=== PATIENT | male | born 1975 | race Caucasian/White ===

== ENCOUNTER → 2018-04-23 | Outpatient (CLI) | payer OTHER ==
[~2018-04-23] MED LIST: ALLP300T PO; CALC-80 PO; CEPH500C PO; HYDR1TAB PO; MAGN100T3 PO; NAPR220T76 PO; OMEG1CAP51 PO; SULF1TAB38 PO
--- NOTE | 2018-04-23 09:47 | Diagnostic Imaging Report ---
INDICATION: Elevated liver function tests TECHNIQUE: Multiple grayscale sonographic images were obtained of the right upper quadrant of the abdomen. CORRELATION STUDY: None FINDINGS: LIVER: There is increased echotexture within the visualized portions of the liver. There is normal, hepatopedal direction of flow within the main portal vein. Liver enlarged at 21 cm. GALLBLADDER: The gallbladder demonstrates no definitive shadowing gallstones. No abnormal gallbladder wall thickening or pericholecystic fluid. COMMON BILE DUCT: Upper limits of normal at 5 mm. PANCREAS: Largely obscured. RIGHT KIDNEY: Measures 11.7 cm. No hydronephrosis. AORTA/IVC: Not well visualized. OTHER: None. IMPRESSION: 1. Hepatomegaly with changes of hepatic steatosis. Dictated by: Dictated on workstation # [id number]
== END ==
LOC: RAD 07:50
PROVIDERS: ATTEND Nurse Practitioner Family
DX: K76.0 Fatty (change of) liver, not elsewhere classified (principal); D69.6 Thrombocytopenia, unspecified
CPT/HCPCS: 76705

== ENCOUNTER → 2019-08-11 | Outpatient (CLI) | payer OTHER ==
--- NOTE | 2019-08-11 07:58 | Diagnostic Imaging Report ---
INDICATION: Right upper quadrant abdominal pain. TECHNIQUE: Multiple grayscale sonographic images were obtained of the right upper quadrant of the abdomen. CORRELATION STUDY: None FINDINGS: LIVER: There is increased echotexture within the visualized portions of the liver. There is normal, hepatopedal direction of flow within the main portal vein. Enlarged at 21 cm. GALLBLADDER: The gallbladder demonstrates no definitive shadowing gallstones. No abnormal gallbladder wall thickening or pericholecystic fluid. COMMON BILE DUCT: Upper limits of normal at 5 mm. PANCREAS: Visualized portions appearing unremarkable. RIGHT KIDNEY: Measures 11.7 x 6.4 x 5.5 cm. No hydronephrosis. AORTA/IVC: Not well visualized. OTHER: None. IMPRESSION: 1. Hepatomegaly with changes reflecting hepatic steatosis. 2. Negative for gallstones. Common bile duct upper limits of normal. Dictated by: Dictated on workstation # [id number]
== END ==
LOC: RAD 06:33
PROVIDERS: ATTEND Family Medicine
DX: K76.0 Fatty (change of) liver, not elsewhere classified (principal); R16.0 Hepatomegaly, not elsewhere classified
CPT/HCPCS: 76705

== ENCOUNTER → 2019-08-23 | Outpatient (CLI) | payer OTHER ==
[~2019-08-23] MED LIST changes: +CATHETER FLUSH 10 ML SYR IV PRN
--- NOTE | 2019-08-23 12:18 | Diagnostic Imaging Report ---
COMPARISON: Liver/gallbladder ultrasound on 08/11/2019. REASON FOR EXAM: Right upper quadrant abdominal pain. PROCEDURE: The patient was administered 5.33 mCi of Choletec. 8 ounces of Ensure was ingested one hour into the exam. Images were obtained one hour following ingestion of Ensure. A nuclear medicine hepatobiliary scan with ejection fraction was performed. FINDINGS: There is prompt uptake and excretion of radiotracer by the liver. Activity is visible in the gallbladder by 40 minutes and the small bowel by 15 minutes. Ejection fraction of the gallbladder is calculated at 16% (normal >35%). Retained radiotracer is visualized at 120 minutes. IMPRESSION: 1. Findings most consistent with gallbladder dyskinesia. 2. No evidence of acute cholecystitis. Dictated by: Dictated on workstation # [id number]
== END ==
LOC: CARD 09:26
PROVIDERS: ATTEND Family Medicine
DX: R10.11 Right upper quadrant pain (principal)
CPT/HCPCS: 78227

== ENCOUNTER 2019-10-01 13:40 | Outpatient (CLI) | payer OTHER ==
[~2019-10-01] VITALS: Ht 182.9 cm; Wt 129.5 kg
[~2019-10-01 13:40] MED LIST changes: -CATHETER FLUSH 10 ML SYR IV PRN
[2019-10-01] MEDS ORDERED: CALC-901 PO (13:50)
[2019-10-01] MEDS ORDERED: MAGN100T5 PO (13:50)
[2019-10-01] MEDS ORDERED: ALLO300T2 PO (13:50)
== END 2019-10-01 13:52 | disposition home or self-care (01) ==
LOC: PREOP 13:40
PROVIDERS: ATTEND Surgery
DX: Z01.818 Encounter for other preprocedural examination (principal)

== ENCOUNTER 2021-03-10 22:00 | Emergency (ER) | payer OTHER ==
[~2021-03-10] VITALS: Ht 182.9 cm; Wt 131.5 kg
[~2021-03-10 22:00] MED LIST changes: +ACHD5005 PO; +ALLO300T2 PO; +CALC-901 PO; +DOCU-143 PO; +MAGN100T5 PO
[2021-03-10 22:20] VITALS: BP 149/89
[2021-03-10] MEDS ORDERED: RX-NAPROXEN (NAPROSYN) 250 MG TAB PPK#4 PO STA (22:38)
[2021-03-10] MEDS ORDERED: TRAM-42 PO (22:41)
[2021-03-10] MEDS ORDERED: NAPR500T8 PO (22:41)
--- NOTE | 2021-03-10 22:41 | ED Upper Extremity ---
General Chief Complaint: Upper Extremity Stated Complaint: R BICEP POPPING/PAIN Nursing Triage Note: PRESENTS TO TRIAGE ACCOMPANIED BY FROM POV WITH C/O ONJURY TO R BICEP. STATES AT 2029 ON THIS DAY WHILE LIFTING A TRUCK BED, HE INJURED BICEP MUSCLE. OBVIOUS BULGING DEFORMITY NOTED TO R BICEP MUSCLE. Nursing Sepsis Screen: No Definite Risk Source: patient History of Present Illness Date Seen by Provider: Mar 10, 2021 Time Seen by Provider: 22:30 Initial Comments PT ARRIVES VIA POV FROM HOME STATES TONIGHT BETWEEN 2029 AND 2099, HE WAS PICKING UP A TRUCK BED, AND FELT A "POP" IN HIS RIGHT BICEPS AREA AND IT IMMEDIATELY BULGED OUT. STATES IT DOESN'T HURT VERY BAD, AND HAS FULL RANGE OF MOTION OF RIGHT ARM NO PARESTHESIAS OR MOTOR DEFICITS STATES HE HAD RUPTURED LEFT BICEPS TENDON A FEW YEARS AGO, BUT IT WAS MORE OF A GRADUAL TEAR, AND NOT SUDDEN LIKE THIS ONE AND HE "FREAKED OUT" TONIGHT BECAUSE IT HAPPENED SUDDENLY. PT STATES HE NEVER FOLLOWED UP WITH ANYONE, NEVER SAW A DR FOR IT, AND HE HAS FULL USE OF HIS LEFT ARM STATES HE LIFTS WEIGHTS ALOT ALSO PT IS LEFT HANDED PCP: DR. ARAGON Allergies and Home Medications Allergies Coded Allergies: Penicillins (Unverified Allergy, Unknown, 10/01/19) shellfish derived (Verified Allergy, Unknown, 10/01/19) Home Medications Allopurinol 300 Mg Tablet, 300 MG PO DAILY, (Reported) Calcium Carbonate/Vitamin D3 1 Each Tablet, 1 EACH PO DAILY, (Reported) Docusate Sodium 100 Mg Capsule, 100 MG PO BID Prescribed by: DALLAS SHERIDAN on 10/08/19 0909 Hydrocodone Bit/Acetaminophen 1 Tab Tab, 1-2 TAB PO Q6H PRN for PAIN-MODERATE Prescribed by: DALLAS SHERIDAN on 10/08/19 0909 Magnesium Amino Acid Chelate 100 Mg Tablet, 100 MG PO DAILY, (Reported) Naproxen 500 Mg Tablet., 500 MG PO BID Prescribed by: CANDICE REMY on 03/10/212240 Tramadol HCl 50 Mg Tablet, 50 MG PO Q4H Prescribed by: CANDICE REMY on 03/10/212240 Patient Home Medication List Home Medication List Reviewed: Yes Review of Systems Constitutional: no symptoms reported Respiratory: no symptoms reported Cardiovascular: no symptoms reported Musculoskeletal: see HPI Skin: no symptoms reported Psychiatric/Neurological: No Symptoms Reported Past Bbtaxnu-Nffucc-Wzaimj Hx Past Med/Social Hx: Reviewed and Corrections made Patient Social History Alcohol Use: Regular Use Number of Drinks Today: 1 Alcohol Beverage of Choice: Beer Smoking Status: Former Smoker Type Used: Cigarettes Former Smoker, Quit: Oct 01, 2003 2nd Hand Smoke Exposure: No Recent Infectious Disease Expo: No Recent Hopitalizations: No Immunizations Up To Date Date of Influenza Vaccine: Sep 17, 2019 Seasonal Allergies Seasonal Allergies: Yes Past Medical History Surgeries: Yes (achilles tendon) Orthopedic, Tonsillectomy, Vasectomy Respiratory: No Cardiac: No Neurological: No Reproductive Disorders: No Genitourinary: No Gastrointestinal: Yes Gall Bladder Disease Musculoskeletal: Yes (ACHILLES TENDON INJURY; LEFT BICEPS TENDON TEAR-NO TREATMENT) Gout Endocrine: No HEENT: No Cancer: No Psychosocial: No Integumentary: No Blood Disorders: No Physical Exam Vital Signs Vital Signs - First Documented 03/10/21 22:20 Temp 36.7 Pulse 77 Resp 18 B/P (MAP) 149/89 (109) Pulse Ox 98 O2 Delivery Room Air Capillary Refill : Less Than 3 Seconds Height, Weight, BMI Height: '" Weight: lbs. oz. kg; 39.00 BMI Method: General Appearance: WD/WN, no apparent distress, other (PT TALKATIVE, AND DOES NOT APPEAR TO BE IN ANY DISCOMFORT OR DISTRESS) Shoulder: normal ROM Elbow/Forearm: normal ROM Wrist: Yes normal inspection, Yes normal ROM Hand: normal inspection, normal ROM Neurologic/Psychiatric: iron pourer II-XII nml as tested, no motor/sensory deficits, alert, normal mood/affect, oriented x 3 Skin: normal color, warm/dry; No rash RIGHT UPPER ARM, WITH OBVIOUS BICEPS TENDON RUPTURE WITH BULGING OF BICEPS MU SCLE IN MID HUMERUS AREA WITH FLEXION AT ELBOW. DISTAL MOTOR/SENSORY/VASCULAR INTACT FULL ROM, WITHOUT OBVIOUS DISCOMFORT BY PATIENT Progress/Results/Core Measures Results/Orders My Orders Orders - CANDICE REMY DO Ed Ortho/Other Supplies Order (03/10/21 22:38) Rx-Naproxen (Rx-Naprosyn) (03/10/21 22:38) Rx-Tramadol Hcl (Rx-Ultram) (03/10/21 22:38) Vital Signs/I&O 03/10/21 22:20 Temp 36.7 Pulse 77 Resp 18 B/P (MAP) 149/89 (109) Pulse Ox 98 O2 Delivery Room Air Blood Pressure Mean: 109 Progress Progress Note : Progress Note DISCUSSED FURTHER TESTING SUCH OUTPATIENT MRI, REFERRAL TO ORTHOPEDIC SURGEON, SLING AND RESTING THE ARM. PT STATES THAT HE DOESN'T NEED ALL THAT, BECAUSE IT HAPPENED TO HIS LEFT BICEPS TENDON A FEW YEARS AGO, AND HE NEVER SOUGHT CARE AND HE HAS FULL USE OF HIS LEFT ARM AND HE IS LEFT HANDED. STRONGLY ENCOURAGED HIM TO FOLLOW UP WITH ORTHOPEDIC SURGEON Departure Impression Primary Impression: Rupture of right biceps tendon Disposition: HOME, SELF-CARE Condition: Stable Departure-Patient Inst. Referrals: JOSE ARAGON MD (PCP/Family) Primary Care Physician DAI GALVAN MD, MICHAEL P MD Patient Instructions: Biceps Tendon Rupture (DC), How to Use a Shoulder Sling ED, Using Cold for Pain Add. Discharge Instructions: WEAR SLING AT ALL TIMES ICE TO AREA AT 20 MINUTE INTERVALS FOLLOW UP WITH DR. FRANCO OR DR. GALVAN NEXT WEEK FOR FURTHER CARE--CALL ON Friday TO SCHEDULE APPOINTMENT All discharge instructions reviewed with patient and/or family. Voiced understanding. Scripts Tramadol HCl (Ultram) 50 Mg Tablet 50 MG PO Q4H for Pain, #20 TAB Prov: CANDICE REMY DO 03/10/21 Naproxen (Naproxen) 500 Mg Tablet. 500 MG PO BID, #20 TAB Prov: CANDICE REMY DO 03/10/21 CANDICE REMY DO Mar 10, 2021 22:41
== END 2021-03-10 22:57 | disposition home or self-care (01) ==
LOC: EDUNIT# 22:00 → ER 22:02
DX: S46.211A Strain of muscle, fascia and tendon of other parts of biceps, right arm, initial encounter (principal); M10.9 Gout, unspecified; Z88.0 Allergy status to penicillin; Z87.891 Personal history of nicotine dependence; Z79.899 Other long term (current) drug therapy; X50.0XXA Overexertion from strenuous movement or load, initial encounter
CPT/HCPCS: 99283